=== PATIENT | female | born 1965 | race Caucasian/White ===

== ENCOUNTER 2022-10-14 21:20 | Emergency (ER) | payer MEDICAID ==
[~2022-10-14] VITALS: Ht 157.5 cm; Wt 72.6 kg
[2022-10-14] MEDS ORDERED: LISI1TAB55 PO (22:21)
[2022-10-14] MEDS ORDERED: ONDANSETRON 4 MG/2 ML VIAL IV ONE (22:30)
[2022-10-14] MEDS ORDERED: IV NORMAL SALINE 1000 ML BAG IV ONE (22:30)
[2022-10-14] MEDS ORDERED: KETOROLAC TROMETHAMINE 15 MG INJ IVP ONE (22:30)
[2022-10-14] MEDS ORDERED: MAG HYDROX/AL HYDROX/SIMETH 30 ML LIQUID UDC PO ONE (22:45)
[2022-10-14] MEDS ORDERED: LIDOCAINE VISCUS 2% 15 ML UDC MM ONE (22:45)
[2022-10-14 22:51] LABS: HEMATOCRIT 40.9 % (31.2-41.9); MEAN CORPUSCULAR HEMOGLOBIN 31.2 uug (24.7-32.8); MEAN CORPUSCULAR VOLUME 92.7 fL (75.5-95.3); PLATELET COUNT (AUTO) 228 K/uL (179-408)
[2022-10-14 22:56] LABS: CREATININE 0.9 mg/dL (0.6-1.3); POTASSIUM 3.7 mmol/L (3.5-5.1)
[2022-10-14 23:01] LABS: BILIRUBIN,TOTAL 0.2 mg/dL (0.2-1.0); TOTAL PROTEIN, SERUM 7.7 g/dL (6.4-8.2)
[2022-10-14 23:03] LABS: LIPASE 207 U/L (73-393)
[2022-10-14 23:05] LABS: *BILIRUBIN,URIN NEGATIVE (NEGATIVE); *CLARITY,URINE CLEAR (CLEAR); *COLOR,URINE YELLOW (YELLOW); *KETONES,URINE NEGATIVE (NEGATIVE); *UROBILINOGEN,URINE 0.2 E.U./dl (NORMAL); LEUKOCYTE ESTERASE ,URINE NEGATIVE (NEGATIVE); NITRITE, URINE NEGATIVE (NEGATIVE); UGLUCOSE NEGATIVE (NEGATIVE)
[2022-10-14 23:06] LABS: *BLOOD, URINE TRACE (NEGATIVE)
[2022-10-14 23:14] LABS: BACTERIA,URINE NONE SEEN /HPF (NONE SEEN); RBC,URINE 0-3 /HPF (0-3)
[2022-10-14 23:15] LABS: SQUAMOUS EPITHELIAL CELL,UR FEW /HPF (NONE SEEN)
[2022-10-14] MEDS ORDERED: SWABABLE VALVE TRANSFER SET EA MC ONE (23:31)
[2022-10-14] MEDS ORDERED: IOHEXOL 300MG/ML 100 ML INFUS..BTL ONE (23:31)
[2022-10-14] MEDS ORDERED: IV NORMAL SALINE 250 ML IV ONE (23:32)
--- NOTE | 2022-10-14 23:35 | NUR ---
Patient signed consent for CT abd/pelvis w/contrast.
--- NOTE | 2022-10-14 23:40 | NUR ---
Patient taken to CT via [facility] accompanied by ivette
--- NOTE | 2022-10-15 00:36 | NUR ---
Patient discharged to home in stable condition. Written and verbal after care instructions given. Patient verbalizes understanding of instructions. Stressed follow up or return to ER for worsening s/s.
[2022-10-15 00:38] VITALS: BP 120/70
== END 2022-10-15 00:38 | disposition home or self-care (01) ==
LOC: ER 21:20
DX: N83.202 Unspecified ovarian cyst, left side (principal); Z79.899 Other long term (current) drug therapy
CPT/HCPCS: 99285; 74177; 96360; 80053; 81001; 83690; 85025; 84484; 36415; 93005; Q9967; J7040; A4663